=== PATIENT | female | born 1970 | race Two or more races ===

== ENCOUNTER 2020-10-05 11:11 | Emergency (ER) | payer OTHER ==
[~2020-10-05] VITALS: Ht 167.6 cm; Wt 93.0 kg
[2020-10-05] MEDS ORDERED: LOSARTAN POTAS100 MG (11:20)
[2020-10-05] MEDS ORDERED: SYNTHROID50 MCG (11:20)
[2020-10-05] MEDS ORDERED: TOPROL XL50 M1 (11:21)
[2020-10-05] MEDS ORDERED: ASPIRIN81 MG (11:21)
[2020-10-05] MEDS ORDERED: JENTADUETO 2.51 EAC2 (11:22)
[2020-10-05] MEDS ORDERED: LEVSIN0.125 MG PO (19:20)
[2020-10-05] MEDS ORDERED: NAPROXEN500 MG PO (19:20)
[2020-10-05] MEDS ORDERED: PEPCID AC20 MG PO (19:21)
== END 2020-10-05 19:32 | disposition home or self-care (01) ==
LOC: ER 11:11
DX: K57.90 Diverticulosis of intestine, part unspecified, without perforation or abscess without bleeding (principal); K43.9 Ventral hernia without obstruction or gangrene; R10.32 Left lower quadrant pain

== ENCOUNTER 2021-03-03 09:00 | Inpatient (IN) | payer OTHER ==
[~2021-03-03] VITALS: Ht 167.6 cm; Wt 90.7 kg
[~2021-03-03 09:00] MED LIST: ASPIRIN81 MG; JENTADUETO 2.51 EAC2; LEVSIN0.125 MG PO; LOSARTAN POTAS100 MG; NAPROXEN500 MG PO; PEPCID AC20 MG PO; SYNTHROID50 MCG; TOPROL XL50 M1
[2021-03-03] MEDS ORDERED: GLIMEPIRIDE2 M1 PO (11:22)
[2021-03-13] MEDS ORDERED: TYLENOL ARTHRI650 MG PO (05:12)
[2021-03-13] MEDS ORDERED: NEURONTIN300 MG PO (05:12)
[2021-03-13] MEDS ORDERED: MIRALAX17 GM PO (05:12)
[2021-03-13] MEDS ORDERED: ULTRAM50 MG PO (05:12)
== END 2021-03-13 11:43 | disposition home or self-care (01) | DRG 337 ==
LOC: SURH 03-09 07:00 → SURG 03-09 12:08 → O/R 03-09 12:08 → SURG 03-10 09:12
PROVIDERS: ADMIT Surgery; ATTEND Surgery
PROC: 0WUF0JZ Supplement Abdominal Wall with Synthetic Substitute, Open Approach (ICD-10-PCS; 2021-03-09)
PROC: 0WUF0JZ Supplement Abdominal Wall with Synthetic Substitute, Open Approach (ICD-10-PCS; 2021-03-09)
PROC: 0DNW0ZZ Release Peritoneum, Open Approach (ICD-10-PCS; principal; 2021-03-09 07:00)
PROC: 02HV33Z Insertion of Infusion Device into Superior Vena Cava, Percutaneous Approach (ICD-10-PCS; 2021-03-11)
DX: K43.0 Incisional hernia with obstruction, without gangrene (principal); K42.0 Umbilical hernia with obstruction, without gangrene; K66.0 Peritoneal adhesions (postprocedural) (postinfection); E03.8 Other specified hypothyroidism; I10 Essential (primary) hypertension